=== PATIENT | female | born 2000 | race Caucasian/White ===

== ENCOUNTER 2018-06-08 11:53 | Emergency (ER) | payer BC ==
[~2018-06-08] VITALS: Ht 167.6 cm; Wt 70.5 kg
[~2018-06-08 11:53] MED LIST: TOPIRAMATE
[2018-06-08 12:11] VITALS: BP 131/85; TEMP 98.9
[2018-06-08 12:44] LABS: BASO % 0.5 % (0.0-2.0); EOS # 0.1 (0.0-0.7); EOS % 1.4 % (0-4.0); GRAN # 4.7 (1.4-6.5); GRAN % 62.2 % (42.2-75.2); HEMOGLOBIN 14.8 g/dl (12.0-15.0); LYMPH # 2.1 (1.2-3.4); LYMPH % 28.2 % (20.0-51.0); MEAN CELL VOLUME 94 fl (80.0-95.0); MEAN CORPUSCULAR HEMOGLOBIN 32 pg (26.0-32.0); MEAN CORPUSCULAR HGB CONC 34 g/dl (33.0-37.0); MONO # 0.6 (0.1-0.6); MONO % 7.4 % (1.7-9.3); PLATELET COUNT 277 K/mm3 (130-400); REDCELL DISTRIBUTION WIDTH-CV 11.9 % (11.5-14.5)
[2018-06-08 12:56] LABS: ALBUMIN 4.4 gm/dL (3.5-5.0); BILIRUBIN,TOTAL 0.7 mg/dL (0.0-1.0); C-REACTIVE PROTEIN 1.4 mg/dL (0.0-0.9); CALCIUM 9.5 mg/dL (8.4-10.2); CREATININE, serum 0.73 (0.52-1.25); POTASSIUM 4.3 mmol/L (3.4-5.0); TOTAL PROTEIN 8.3 gm/dL (6.4-8.2)
[2018-06-08 12:57] LABS: COLLECTION METHOD CLEAN CATCH
[2018-06-08 13:12] LABS: MUCOUS Present /lpf; URINE BACTERIA None Seen /hpf; URINE RBC >50 /hpf
[2018-06-08 13:13] LABS: PH 6 (5-8); URINE APPEARANCE Hazy; URINE BILIRUBIN Negative (NEGATIVE); URINE BLOOD 3+ (NEGATIVE); URINE COLOR Yellow; URINE GLUCOSE Negative (NEGATIVE); URINE KETONE Negative (NEGATIVE); URINE LEUKOCYTE ESTERASE Negative (NEGATIVE); URINE NITRATE Negative (NEGATIVE); URINE PROTEIN(semi-quant) 1+ (NEGATIVE); URINE UROBILINOGEN Negative (NEGATIVE)
[2018-06-08 15:00] VITALS: PULSE 77
== END 2018-06-08 15:02 | disposition home or self-care (01) ==
LOC: COL.ER 11:53
PROVIDERS: Physician Assistant
DX: R10.11 Right upper quadrant pain (principal); Z87.442 Personal history of urinary calculi
CPT/HCPCS: J7030